=== PATIENT | female | born 1975 | race Caucasian/White ===

== ENCOUNTER 2017-06-10 22:29 | Inpatient (IN) | payer SELFPAY ==
[~2017-06-10] VITALS: Ht 160 cm; Wt 91.7 kg
--- NOTE | 2017-06-10 22:55 | NUR ---
pt ambulatory w/ steady gait, c/o sob w/ diffuse abd pain, N/V s/p recent gastric sleeve sx last saturday while in [place], no diarrhea, lbm last saturday. AOx4, afebrile w/ resp even & unlabored, tachypneic, hypoxic, diffuse abd pain w/ multiple surgical incisions w/ dry bandage, no redness or active drainage noted. pt placed on 2 l/min O2 via NC, pulse-ox w/ cardiac monitoring. Dr. De La Cruz at bedside for further eval.
[2017-06-10] MEDS ORDERED: ONDANSETRON HCL/PF 4 MG/2 ML VIAL IVP ONE (23:00)
[2017-06-10] MEDS ORDERED: IV NS 0.9% 500 ML BAG IV ONE (23:00)
[2017-06-10] MEDS ORDERED: MORPHINE SULFATE INJ 2 MG/ML DISP.SYRIN IV ONE (23:00)
--- NOTE | 2017-06-10 23:10 | NUR ---
JOSE started, patent & intact w/ site benign. furniture repair technician at bedside for blood draw.
[2017-06-10 23:20] LABS: EOSINOPHILS % (AUTO) 0.2 % (0.0-6.0); HEMATOCRIT 40 % (33-45); HEMOGLOBIN 12.8 g/dL (11.5-14.8); LYMPHOCYTES # (AUTO) 0.4 /CMM (0.8-4.8); LYMPHOCYTES % (AUTO) 2.2 % (20.0-44.0); MEAN CORPUSCULAR HEMOGLOBIN 22 PG (26.0-33.0); MEAN CORPUSCULAR HGB CONC 32 g/dl (31.0-36.0); MEAN CORPUSCULAR VOLUME 68 fL (82-100); MONOCYTES # (AUTO) 0.5 /CMM (0.1-1.30); MONOCYTES % (AUTO) 3.3 % (2.0-12.0); NEUTROPHILS # (AUTO) 15.2 /CMM (1.8-8.9); NEUTROPHILS % (AUTO) 94.3 % (43.0-81.0); PLATELET COUNT (AUTO) 251 /CMM (150-450); RDW COEFFICIENT OF VARIATION 19.8 (11.5-15.0); RED BLOOD CELL COUNT(AUTO) 5.94 MIL/uL (4.0-5.2); WHITE BLOOD COUNT (AUTO) 16.2 K/uL (4.3-11.0)
[2017-06-10] MEDS ORDERED: ONDANSETRON HCL/PF 4 MG/2 ML VIAL ONE (23:20)
[2017-06-10] MEDS ORDERED: MORPHINE SULFATE INJ 4 MG/ML DISP.SYRIN ONE (23:21)
[2017-06-10 23:31] LABS: CALCIUM, SERUM 8.6 mg/dL (8.5-10.1); CARBON DIOXIDE 28 mmol/L (21-32); CHLORIDE 104 mmol/L (98-107); CREATININE 1.5 mg/dL (0.6-1.3); GLUCOSE 124 mg/dL (74-106); POTASSIUM 3.5 mmol/L (3.5-5.1); SODIUM SERUM 140 mmol/L (136-145); UREA NITROGEN, BLOOD 21 mg/dL (7-18)
[2017-06-10 23:35] LABS: INR 1.23 (0.87-1.13); PROTHROMBIN TIME 12.8 SECS (9.5-12.7)
[2017-06-10 23:37] LABS: ALANINE AMINOTRANSFERASE 16 U/L (12-78); ALBUMIN 2.8 g/dL (3.4-5.0); ALKALINE PHOSPHATASE 61 U/L (46-116); ASPARTATE AMINOTRANSFERASE 11 U/L (15-37); BILIRUBIN,DIRECT 0.6 mg/dL (0.0-0.2); BILIRUBIN,TOTAL 1.6 mg/dL (0.2-1.0); LIPASE 110 U/L (73-393); TOTAL PROTEIN, SERUM 7.2 g/dL (6.4-8.2)
--- NOTE | 2017-06-10 23:51 | NUR ---
pt report unable urinate at this time. advised pt to provide urine sample laney. pt denies being , states she has an IUD and will sign waiver for testing.
[2017-06-11] VITALS (16 sets, daily range): BP systolic 84–131; BP diastolic 55–92
--- NOTE | 2017-06-11 00:04 | NUR ---
SENT TO CT.
[2017-06-11] MEDS ORDERED: CT SWABBABLE VALVE TRANS SET 1 EA INFUS.SET MC ONE (00:06)
[2017-06-11] MEDS ORDERED: IOHEXOL-350 100 ML VIAL IV ONE (00:06)
[2017-06-11] MEDS ORDERED: IV NS 0.9% 250 ML IV ONE (00:06)
--- NOTE | 2017-06-11 00:26 | NUR ---
pt back fr CT w/ resp even & unlabored, nad noted. On continuous O2, pulse-ox w/ cardiac monitoring.
--- NOTE | 2017-06-11 00:40 | NUR ---
PT AMBULATORY W/ STEADY GAIT TO RESTROOM. URINE OBTAINED & SENT TO LAB.
[2017-06-11] MEDS ORDERED: IV NS 0.9% 1,000 ML BAG IV ONE ×2 (01:00→02:30)
--- NOTE | 2017-06-11 01:52 | NUR ---
pt sitting up in bed w/ resp even & unlabored, on continues O2 w/ report now having lt shoulder pain, tolerable at this time. On continuous monitoring w/ family at bedside. Awaiting CT results.
[2017-06-11 01:55] LABS: APPEARANCE,URINE SL CLOUDY (CLEAR); BILIRUBIN,URINE NEGATIVE (NEGATIVE); BLOOD, URINE TRACE-INTA Ery/uL (NEGATIVE); COLOR,URINE YELLOW (YELLOW); KETONES,URINE NEGATIVE (NEGATIVE); LEUKOCYTE ESTERASE ,URINE NEGATIVE (NEGATIVE); NITRITE, URINE NEGATIVE (NEGATIVE); PH,URINE 6.5 (5.0-8.0); PROTEIN,URINE 1+ mg/dl (NEGATIVE); UGLUCOSE NEGATIVE (NEGATIVE)
[2017-06-11 01:58] LABS: BACTERIA,URINE None seen /HPF (None Seen); SQUAMOUS EPITHELIAL CELL,UR Few /HPF (None Seen); WBC,URINE 0-2 /HPF (0-3)
[2017-06-11] MEDS ORDERED: LEVOFLOXACIN 500 MG /D5W 100ML 500 MG in PREMIX 1 EA IV SCH (02:30)
[2017-06-11] MEDS ORDERED: ENOXAPARIN SODIUM 40 MG/0.4 ML DISP.SYRIN SQ SCH (02:30)
[2017-06-11] MEDS ORDERED: Z GUARD REMEDY 2 OZ OINT TP PRN (02:30)
[2017-06-11] MEDS ORDERED: ACETAMINOPHEN 325 MG TABLET PO PRN (02:30)
[2017-06-11] MEDS ORDERED: ZOLPIDEM TARTRATE 5 MG TABLET PO PRN (02:30)
[2017-06-11] MEDS ORDERED: MAGNESIUM HYDROXIDE 30 ML UDC PO PRN (02:30)
[2017-06-11] MEDS ORDERED: MAG HYDROX/AL HYDROX/SIMETH 30 ML UDC PO PRN (02:30)
[2017-06-11] MEDS ORDERED: LEVOFLOXACIN 750 MG /D5W 150ML PIGGYBACK IV ONE (02:30)
--- NOTE | 2017-06-11 02:36 | NUR ---
Report given to JACIEL Marie for AGUSTIN.
[2017-06-11] MEDS ORDERED: ENOXAPARIN SODIUM 40 MG/0.4 ML DISP.SYRIN SQ ONE (02:51)
[2017-06-11] MEDS ORDERED: HYDROCODONE/APAP 5/325MG 1 EACH TABLET ONE (02:52)
--- NOTE | 2017-06-11 02:55 | NUR ---
MS RN OPENING NOTES RECEIVED PT FROM Skip AT 0245 VIA [facility], PT A/O X4, PT NO ACUTE DISTRESS NOTED. DAUGHTER AT BEDSIDE, ON 2LPM VIA NC 02 SAT 97% ADMIT TO MS UNIT, BREATHING EVEN AND UNLABORED, PT STATED THAT SHE IS HAVING SOB AT TIMES HEAD OF BED ELEVATED FOR BETTER LUNG EXPANSION AND GOOD CIRCULATION. SAFETY MEASURES IN PLACE, BED LOCKED AND IN LOWEST POSITION, CALL LIGHT IN REACH. WILL CONTINUE TO MONITOR.
[2017-06-11] MEDS ORDERED: ONDANSETRON HCL/PF 4 MG/2 ML VIAL ONE (03:02)
[2017-06-11] MEDS: ONDANSETRON HCL/PF 4 MG/2 ML VIAL IVP PRN ×2 (03:06→08:42)
[2017-06-11] MEDS: HYDROCODONE/APAP 5/325MG 1 EACH TABLET PO PRN (03:06)
--- NOTE | 2017-06-11 06:41 | NUR ---
MS RN CLOSING NOTES PATIENT COMFORTABLY ASLEEP AND EASILY AWAKEN, HEAD OF BED ELEVATED FOR BETTER LUNG EXPANSION, ON 2LPM VIA NC 02 SAT AT 100% IV SITE NO S/S OF INFILTRATED PATENT AND FLUSHED, PATIENT DENIES PAIN AT THIS TIME. RESPIRATIONS EVEN AND UNLABORED, NO S/S OF ACUTE DISTRESS, IN STABLE CONDITION, NO COUGH, NO CONGESTION, SKIN WARM AND DRY TO TOUCH, AFEBRILE, ALL NURSING CARE RENDERED, NEEDS ATTENDED AND ANTICIPATED, KEPT CLEAN AND DRY AND COMFORTABLE, GOOD SKIN CARE PROVIDED. ALL DUE MEDS WAS GIVEN FREQUENT VISUAL CHECK DONE FOR SAFETY SAFE HAZARD FREE ENVIRONMENT PROVIDED. CALL LIGHT WITHIN EASY TO REACH, ON LOW BED AT ALL TIMES TO ENSURE SAFETY, WILL ENDORSE TO THE NEXT SHIFT CONTINUE PLAN OF CARE.
[2017-06-11] MEDS: PANTOPRAZOLE 40 MG TABLET.DR PO SCH (07:30)
[2017-06-11] MEDS: HYDROCODONE/APAP 10/325MG 1 EA TABLET PO PRN (08:43)
--- NOTE | 2017-06-11 09:00 | NUR ---
RN MS NOTES PT RESTING IN BED, COMFORTABLY. PT COMPLAINING OF PAIN IN ABDOMEN AND LOWER BACK. REPOSITIONED PT AND ADMINISTERED PAIN MEDICATION. PT RECEIVING 3L OF O2 THROUGH NC. O2 SAT 92%, WILL CONTINUE TO MONITOR. LEFT CALL LIGHT WITHIN REACH.
[2017-06-11 11:32] LABS: ABG BASE EXCESS -4.7 mmol/L; ABG PCO2 33.4 mmHg (35.0-45.0); ABG PH 7.383 (7.350-7.450); ABG PO2 69.6 mmHg (75.0-100.0); AaDO2 119.5 mmHg; COHb 0.6 % (0.5-1.5); MetHb 0.5 % (0.0-1.5); SITE, ABG Right Radial; VENT MODE, BG NASAL CANNULA
--- NOTE | 2017-06-11 12:00 | NUR ---
RN MS NOTES PT IN BED, STATED THAT SHE HAS BEEN HAVING VERY LITTLE URINE OUTPUT SINCE LAST NIGHT, WITH COMPLAINT OF BLADDER DISCOMFORT, DR. DIXON INFORMED, ORDERED MOSES CATHETER PLACEMENT, NOTED AND CARRIED OUT, PT TOLERATED PROCEDURE WELL.
[2017-06-11] MEDS ORDERED: DIATR MEGLU/DIATRIZOATE SODIUM 30 ML BOTTLE (GASTROGRAPHIN) ONE (12:56)
--- NOTE | 2017-06-11 13:31 | NUR ---
RN MS NOTES PT SEEN BY DR. DAWKINS, PLAN OF CARE DISCUSSED WITH PT, VERBALIZED UNDERSTANDING, MD ORDERED CT SCAN OF ABD AND PELVIS WITH CONTRAST AND CBC STAT, CONSENT GIVEN BY PT.
--- NOTE | 2017-06-11 14:15 | NUR ---
PATIENT UNABLE TO TOLERATE LYING DOWN IN SUPINE POSITION. RN AWARE.
[2017-06-11 14:21] LABS: EOSINOPHILS % (AUTO) 0.1 % (0.0-6.0); HEMATOCRIT 44 % (33-45); HEMOGLOBIN 13.7 g/dL (11.5-14.8); LYMPHOCYTES # (AUTO) 0.2 /CMM (0.8-4.8); LYMPHOCYTES % (AUTO) 1.3 % (20.0-44.0); MEAN CORPUSCULAR HEMOGLOBIN 22 PG (26.0-33.0); MEAN CORPUSCULAR HGB CONC 32 g/dl (31.0-36.0); MEAN CORPUSCULAR VOLUME 68 fL (82-100); MONOCYTES # (AUTO) 0.5 /CMM (0.1-1.30); MONOCYTES % (AUTO) 2.8 % (2.0-12.0); NEUTROPHILS # (AUTO) 18.4 /CMM (1.8-8.9); NEUTROPHILS % (AUTO) 95.8 % (43.0-81.0); PLATELET COUNT (AUTO) 256 /CMM (150-450); RDW COEFFICIENT OF VARIATION 19.3 (11.5-15.0); RED BLOOD CELL COUNT(AUTO) 6.38 MIL/uL (4.0-5.2); WHITE BLOOD COUNT (AUTO) 19.2 K/uL (4.3-11.0)
[2017-06-11 15:05] LABS: BAND % (MANUAL) 21 % (0.0-5.0); LYMPHOCYTES % (MANUAL) 2 % (16-48); MONOCYTES % (MANUAL) 9 % (0-11.0); NEUTROPHILS % (MANUAL) 68 (42-76)
--- NOTE | 2017-06-11 15:30 | NUR ---
RN MS NOTES PT UNABLE TO HAVE CT SCAN BECAUSE PT IS UNABLE TO TOLERATE LYING FLAT, MAKING HER HARDER TO BREATHE, DR. DAWKINS INFORMED, PT SEEN BY DR. DC, DR. DIXON AND DR. DAWKINS INFORMED OF MD'S RECOMMENDATIONS, ORDERS RECEIVED TO GET CONSENT FOR EXPLORELAP, PT INFORMED, EXPLAINED PROCEDURE TO PT, VERBALIZED UNDERSTANDING, PT SIGNED CONSENTS, KEPT PT NPO.
--- NOTE | 2017-06-11 15:52 | NUR ---
OR INFORMED, SPOKE WITH DAVID THAT PT SCHEDULED FOR EMERGENCY SURGERY PER DR. APONTE.
[2017-06-11] MEDS ORDERED: HYDROMORPHONE INJ 2 MG/ML DISP.SYRIN ONE (16:45)
[2017-06-11] MEDS ORDERED: MIDAZOLAM HCL 2 MG/2ML VIAL ONE (16:45)
[2017-06-11] MEDS ORDERED: ROCURONIUM BROMIDE 50 MG/5 ML ONE (16:45)
[2017-06-11] MEDS ORDERED: SUCCINYLCHOLINE CHLORIDE 20 MG/ML VIAL ONE (16:45)
--- NOTE | 2017-06-11 16:50 | NUR ---
RN MS NOTES PT IN BED, AWAKE, ALERT AND ORIENTED, DR. DAWKINS AT BEDSIDE, EXPLAINED PLAN OF CARE AND PROCEDURE TO PT, VERBALIZED UNDERSTANDING, PT PICKED UP BY O.R. STAFF VIA BED, LEFT IN STABLE CONDITION.
[2017-06-11] MEDS ORDERED: METRONIDAZOLE 500MG/ NS 100ML 100 ML IV ONE (17:25)
[2017-06-11] MEDS ORDERED: CIPROFLOXACIN IV RTU 400 MG in PREMIX 1 EA IV STA (17:27)
[2017-06-11] MEDS ORDERED: METHYLENE BLUE AMP (1ML) 1 ML AMPUL IJ ONE (18:18)
--- NOTE | 2017-06-11 18:30 | NUR ---
RN MS NOTES REPORT GIVEN TO LILA DRIVER LICENSE REVIEWING OFFICER.
[2017-06-11] MEDS ORDERED: NEOMY SULF/BACITRAC ZN/POLY 15 GM TUBE TP ONE (20:20)
--- NOTE | 2017-06-11 20:40 | NUR ---
RN:ICU: PT RECEIVED FROM OR S/P EXPLORATORY LAP WHICH WAS PERFORMED BY DR DAWKINS. PT REPORTEDLY WAS BECOMING WORSE FOLLOWING A PLASTIC SURGERY PERFORMED IN [place] FIVE DAYS LINK FABRIC MACHINE OPERATOR. PT HAD BEEN EXPERIENCING ABDOMINAL PAIN AND SHORTNESS OF BREATH, WHICH WARRANTED THIS PROCEDURE. PER SURGEON DURING THE SURGERY A LARGE AMOUNT OF AUTUMN FLUID WAS FOUND IN THE ABDOMINAL CAVITY. PT RECEIVED ON VENT POST OP. ABG AND CHEST XRAY ORDERED TO VERIFY ETT PLACEMENT AND ESTABLISH ADEQUATE VENTILATION/OXYGENATION. SURGEON AT THE BEDSIDE FOLLOWING CASE AND WAS ABLE TO VERIFY POST OP ORDERS WITH PRIMARY NURSE AND CHARGE NURSE. MD AWARE OF LOW URINE OUTPUT AND ANTICIPATES THAT IT WILL IMPROVE AFTER RECEIVING HIGH VOLUMES OF LR. NEW IV STARTED ON RIGHT HAND BY RECOVERY NURSE DESTINY. DESTINY STARTED PROPOFOL FOR SEDATION DURING RECOVERY AT 5MCG/KG/MIN. RECOVERY NURSE DID NOT SCAN MEDICATION WHEN GTT WAS STARTED, MED WAS SCANNED LATE A RESULT. BILATERAL SOFT WRIST RESTRAINTS IN PLACE FOR PATIENT SAFETY FOLLOWING PROCEDURE. PT AFEBRILE AND NO SOB NOTED. STAT LABS SENT OUT. WILL F/U SHORTLY. PT HAS TWO ABDOMINAL STEVE DRAINS WITH MODERATE SEROSANGUINEOUS FLUID DRAINING, ALONG WITH MULTIPLE ABDOMINAL INCISIONS WITH CLEAN DRY DRESSINGS. ABDOMINAL BINDER IN PLACE POST OP. WILL CONTINUE TO MONITOR CLOSELY.
[2017-06-11] MEDS ORDERED: PROPOFOL 100 ML IV ONE (20:48)
[2017-06-11 21:23] LABS: ABG BASE EXCESS -9.2 mmol/L; ABG OXYGEN SATURATION 95.2 % (92.0-98.5); ABG PCO2 44.5 mmHg (35.0-45.0); ABG PH 7.228 (7.350-7.450); ABG PO2 91.4 mmHg (75.0-100.0); AaDO2 287.5 mmHg; COHb 0.8 % (0.5-1.5); MetHb 1.1 % (0.0-1.5); O2Hb 93.4 % (94.0-97.0); PEEP,BG 5 cm H2O; SITE, ABG Right Brachial; VENT MODE, BG AC 14 500 60% +55; VT, ABG 500 mL
[2017-06-11] MEDS ORDERED: PROMETHAZINE HCL 50 MG/ML AMPUL IM PRN (21:30)
[2017-06-11] MEDS ORDERED: CIPROFLOXACIN IV RTU 400 MG in PREMIX 1 EA IV SCH (21:30)
[2017-06-11] MEDS ORDERED: MEPERIDINE HCL/PF 100 MG/ML DISP.SYRIN IM PRN (21:30)
[2017-06-11] MEDS ORDERED: MEPERIDINE HCL/PF 100 MG/ML DISP.SYRIN IV PRN (21:30)
[2017-06-11 21:35] LABS: HEMATOCRIT 43 % (33-45); HEMOGLOBIN 13.3 g/dL (11.5-14.8); LYMPHOCYTES # (AUTO) 0.2 /CMM (0.8-4.8); LYMPHOCYTES % (AUTO) 0.8 % (20.0-44.0); MEAN CORPUSCULAR HEMOGLOBIN 21 PG (26.0-33.0); MEAN CORPUSCULAR HGB CONC 31 g/dl (31.0-36.0); MEAN CORPUSCULAR VOLUME 69 fL (82-100); MONOCYTES # (AUTO) 0.5 /CMM (0.1-1.30); MONOCYTES % (AUTO) 2.7 % (2.0-12.0); NEUTROPHILS # (AUTO) 19.2 /CMM (1.8-8.9); NEUTROPHILS % (AUTO) 96.5 % (43.0-81.0); PLATELET COUNT (AUTO) 244 /CMM (150-450); RED BLOOD CELL COUNT(AUTO) 6.21 MIL/uL (4.0-5.2); WHITE BLOOD COUNT (AUTO) 19.9 K/uL (4.3-11.0)
[2017-06-11] MEDS: IV LR 1000 ML 1,000 ML IV PRN (21:38)
--- NOTE | 2017-06-11 21:45 | NUR ---
RN:ICU: CALLED RADIOLOGY MULTIPLE TIMES TO OBTAIN RESULTS FROM S/P INTUBATION RESULTS. PER REPORT ETT 10MM ABOVE ALEXUS. ABG RESULTS AND CHEST XRAY RESULTS REPORTED TO DR. DC. NEW ORDERS OBTAINED TO CHANGE VENT SETTINGS AND REPEAT CHEST XRAY AFTER ADVANCING 3MM. RT AWARE AND ORDERS CARRIED OUT. WILL CONTINUE TO MONITOR CLOSELY.
[2017-06-11] MEDS: PROPOFOL 100 ML IV PRN (21:51)
[2017-06-11 21:52] LABS: ALBUMIN 1.7 g/dL (3.4-5.0); BILIRUBIN,TOTAL 1.5 mg/dL (0.2-1.0); CALCIUM, SERUM 7.1 mg/dL (8.5-10.1); CREATININE 1.5 mg/dL (0.6-1.3); MAGNESIUM 1.8 mg/dL (1.8-2.4); POTASSIUM 4.1 mmol/L (3.5-5.1); TOTAL PROTEIN, SERUM 5.5 g/dL (6.4-8.2)
[2017-06-11] MEDS ORDERED: CIPROFLOXACIN IV RTU 200 ML IV ONE (22:04)
[2017-06-11] MEDS ORDERED: MEPERIDINE HCL/PF 50 MG/ML DISP.SYRIN ONE (22:58)
[2017-06-11] MEDS ORDERED: PROMETHAZINE HCL 25 MG/ML AMPUL ONE (22:59)
--- NOTE | 2017-06-11 23:15 | NUR ---
RN:ICU: RIGHT HAND IV DISLODGED, NEW PIV INSERTED ON RIGHT WRIST. DUE TO LARGE AMOUNT OF LR RUNNING ORDERS OBTAINED FOR MIDLINE. MIDLINE INSERTED BY PICC NURSE ON RIGHT UPPER ARM WITH OUT COMPLICATIONS. OLD IV REMOVED. ORDERS OBTAINED TO GIVE A PRN ONCE TIMES DOSE OF MORPHINE IF NEEDED TO MANAGE PAIN INSTEAD OF DEMEROL. MODERATE AMOUNT OF SEROSANGUINEOUS FLUID DRAINING FROM STEVE TUBES X2 R>L. WILL CONTINUE TO MONITOR CLOSELY.
[2017-06-11] MEDS: PROMETHAZINE HCL 50 MG/ML AMPUL IM PRN (23:16)
[2017-06-11] MEDS ORDERED: MORPHINE SULFATE INJ 2 MG/ML DISP.SYRIN IV PRN (23:30)
[2017-06-11 23:34] LABS: BAND % (MANUAL) 68 % (0.0-5.0); METAMYELOCYTES % 1 % (0-0); MONOCYTES % (MANUAL) 1 % (0-11.0); NEUTROPHILS % (MANUAL) 30 (42-76)
[2017-06-11 23:49] LABS: REACTIVE LYMPHOCYTES 0 % (0-0)
[2017-06-11 23:51] LABS: LYMPHOCYTES % (MANUAL) 0 % (16-48)
[2017-06-12] VITALS (37 sets, daily range): BP systolic 83–133; BP diastolic 50–85
[2017-06-12] MEDS ORDERED: METRONIDAZOLE 500MG/ NS 100ML 100 ML IV ONE (00:17)
[2017-06-12] MEDS: PROPOFOL 100 ML IV PRN ×4 (00:17→08:41)
--- NOTE | 2017-06-12 01:11 | NUR ---
RN:ICU: LATEST CHEST XRAY SHOWS ETT 1.2MM ABOVE ALEXUS, PER RT MARIANA ETT IS IN PLACE. PT O2 WNL. PT TURNED Q2H. WILL CONTINUE TO MONITOR CLOSELY.
[2017-06-12] MEDS ORDERED: MEPERIDINE HCL/PF 100 MG/ML DISP.SYRIN IM PRN (01:30)
[2017-06-12] MEDS ORDERED: METRONIDAZOLE 500MG/ NS 100ML 500 MG in PREMIX 1 EA IV SCH (01:30)
[2017-06-12] MEDS ORDERED: LEVOFLOXACIN 500 MG /D5W 100ML 500 MG in PREMIX 1 EA IV SCH (03:00)
[2017-06-12] MEDS: IV LR 1000 ML 1,000 ML IV PRN (03:52)
[2017-06-12 04:45] LABS: HEMATOCRIT 35 % (33-45); HEMOGLOBIN 10.9 g/dL (11.5-14.8); LYMPHOCYTES # (AUTO) 0.6 /CMM (0.8-4.8); LYMPHOCYTES % (AUTO) 4.6 % (20.0-44.0); MEAN CORPUSCULAR HEMOGLOBIN 22 PG (26.0-33.0); MEAN CORPUSCULAR HGB CONC 32 g/dl (31.0-36.0); MEAN CORPUSCULAR VOLUME 68 fL (82-100); MONOCYTES # (AUTO) 0.4 /CMM (0.1-1.30); MONOCYTES % (AUTO) 3.1 % (2.0-12.0); NEUTROPHILS # (AUTO) 12.9 /CMM (1.8-8.9); NEUTROPHILS % (AUTO) 92.3 % (43.0-81.0); PLATELET COUNT (AUTO) 197 /CMM (150-450); RDW COEFFICIENT OF VARIATION 19.8 (11.5-15.0); RED BLOOD CELL COUNT(AUTO) 5.07 MIL/uL (4.0-5.2)
[2017-06-12 05:14] LABS: CALCIUM, SERUM 7.1 mg/dL (8.5-10.1); CREATININE 1.6 mg/dL (0.6-1.3); MAGNESIUM 1.9 mg/dL (1.8-2.4); PHOSPHORUS 1.9 mg/dL (2.5-4.9); POTASSIUM 3.2 mmol/L (3.5-5.1)
[2017-06-12] MEDS ORDERED: IV LR 1000 ML 1,000 ML IV ONE (05:44)
--- NOTE | 2017-06-12 05:47 | NUR ---
RN:ICU: DR DAWKINS CALLED TO CHECK ON PT CONDITION, ALL UPDATES GIVEN INCLUDING AM LABS, CURRENT BP DROPPING TO 80'S AND STEVE DRAINAGE, WELL CHEST XRAY RESULTS. NEW ORDERS RECEIVED TO INCREASE LR X1L AND REPLACE POTASSIUM. MD INFORMED OF U/O AND URINE COLOR. DIPRIVAN DECREASED FROM 40MCG/KG/MIN TO 30MCG/KG/MIN TO ASSIST WITH IMPROVING PT BP. BILAT SOFT WRIST RESTRAINTS ON FOR PT SAFETY. ORDERS CARRIED OUT. ALSO DISCUSSED WITH MD REGARDING D/C OF LEVAQUIN CIPRO WAS ALREADY ORDERED.
[2017-06-12] MEDS ORDERED: POTASSIUM CL. PREMIX PERIPHER. 50 ML ONE (05:59)
[2017-06-12] MEDS ORDERED: IV LR 1000 ML 1,000 ML IV PRN (06:00)
[2017-06-12] MEDS ORDERED: MORPHINE SULFATE INJ 2 MG/ML DISP.SYRIN ONE (06:08)
[2017-06-12 06:22] LABS: BAND % (MANUAL) 26 % (0.0-5.0); LYMPHOCYTES % (MANUAL) 3 % (16-48); MONOCYTES % (MANUAL) 3 % (0-11.0); NEUTROPHILS % (MANUAL) 68 (42-76)
[2017-06-12] MEDS ORDERED: POTASSIUM CL. PREMIX PERIPHER. 50 ML IV SCH (06:30)
--- NOTE | 2017-06-12 07:00 | NUR ---
LINUX DEVELOPER- INITIAL NOTE RECEIVED PT INTUBATED AND SEDATED. ON DIPRIVAN GTT AT 35 MCG/MIN. INTUBATED, 7.0, 25 CM @ THE LIP. BEDSIDE MONITOR REVEALS SINUS RHYTHM. RIGHT NARE NGT CONNECTED TO LOW INTERMITTENT SUCTION. MIDLINE ABDOMINAL INCISION PRESENT WITH TWO STEVE DRAINS ON ABDOMEN (LEFT AND RIGHT). MOSES CATHETER DRAINING TO GRAVITY. KAYCEE MIDLINE RUNNING LR @ 250 MLS/HR. SAFETY MEASURES TAKEN: BED LOCKED AND IN LOW POSITION, SIDE RAILS UP X2 AND BED ALARM ON, WILL CONTINUE TO MONITOR.
[2017-06-12] MEDS: PANTOPRAZOLE 40 MG TABLET.DR PO SCH (07:30)
[2017-06-12] MEDS: ENOXAPARIN SODIUM 40 MG/0.4 ML DISP.SYRIN SQ SCH (08:30)
[2017-06-12 08:46] LABS: ABG BASE EXCESS -1.7 mmol/L; ABG OXYGEN SATURATION 95.5 % (92.0-98.5); ABG PCO2 25.6 mmHg (35.0-45.0); ABG PH 7.512 (7.350-7.450); ABG PO2 74.6 mmHg (75.0-100.0); COHb 0.3 % (0.5-1.5); MetHb 0.9 % (0.0-1.5); O2Hb 94.4 % (94.0-97.0); PEEP,BG 5 cm H2O; SITE, ABG Left Radial; VT, ABG 550 mL
--- NOTE | 2017-06-12 09:00 | NUR ---
COTTON BREEDER- SEDATION VACATION. 899- PT ON DIPRIVAN @ 35 MCG/MIN. DECREASED TO 30 MCG/MIN. PT AWAKE, CALM, COOPERATIVE. ABLE TO FOLLOW SIMPLE COMMANDS. NODS HEAD, OPENS EYES AND SQUEEZES HANDS. 09- PT PLACED ON SIMV MODE BY RT PER DR. DC. 1030- ABGS DONE. RESULTS RELAYED TO DR. DC BY RT. 1045- RECEIVED ORDER FROM DR. DC TO PROCEED WITH EXTUBATION. PT REMAINS CALM, RESTING IN BED. SISTER AT BEDSIDE. 1100- PT EXTUBATED BY RT. PLACED ON 6L NC. WILL CONTINUE TO MONITOR. Addendum: 06/12/17 at 1233 by RICKIE NOWAK RN 919- PT PLACED ON SIMV MODE AND DIPRIVAN WAS TURNED OFF. PT REMAINS CALM, ABLE TO FOLLOW SIMPLE COMMANDS. VITAL SIGNS STABLE.
--- NOTE | 2017-06-12 09:30 | NUR ---
RESIDENTIAL MANAGER- DR. DESTINY FELDMAN AT BEDSIDE. INFORMED MD OF THE FOLLOWIN) DEMEROL IM ORDERED PRN FOR PAIN, 2) TEA-COLORED URINE WITH LOW OUTPUT NOTED. PER MD, D/C DEMEROL IM AND ORDER MORPHINE 2 MG IV Q3H PRN PAIN AND 2) D/C LACTATED RINGERS AND NEW ORDER OF NS @ 150 ML/HR. ORDERS PLACED. WILL CONTINUE TO MONITOR.
[2017-06-12] MEDS: IV NS 0.9% 1,000 ML IV PRN ×2 (09:47→18:10)
[2017-06-12] MEDS: CIPROFLOXACIN IV RTU 400 MG in PREMIX 1 EA IV SCH ×2 (10:22→21:47)
[2017-06-12 10:57] LABS: ABG BASE EXCESS -3.4 mmol/L; ABG OXYGEN SATURATION 96.3 % (92.0-98.5); ABG PCO2 28.1 mmHg (35.0-45.0); ABG PH 7.455 (7.350-7.450); ABG PO2 88.1 mmHg (75.0-100.0); AaDO2 236.8 mmHg; COHb 0.3 % (0.5-1.5); MetHb 0.5 % (0.0-1.5); O2Hb 95.5 % (94.0-97.0); PEEP,BG 5 cm H2O; SITE, ABG Left Brachial; VENT MODE, BG SIMV PS=12; VT, ABG 550 mL
--- NOTE | 2017-06-12 11:15 | NUR ---
RT NOTE LATE ENTRY-AWAKE AND ALERT PATIENT EXTUBATED PER 'S ORDER. PLACED ON 6LPM VIA NASAL CANNULA. TOLERATING WELL. NURSE (RICKIE) AWARE.
[2017-06-12] MEDS: MORPHINE SULFATE INJ 2 MG/ML DISP.SYRIN IV PRN ×3 (11:58→18:10)
[2017-06-12] MEDS: METRONIDAZOLE 500MG/ NS 100ML 500 MG in PREMIX 1 EA IV SCH ×2 (12:00→21:43)
[2017-06-12] MEDS ORDERED: Sodium Phosphate 15 MMOL in IV D5W 250 ML IV ONE (14:00)
--- NOTE | 2017-06-12 16:30 | NUR ---
MEDICAL SAFETY DIRECTOR- COMPLETE BED BATH WAS GIVEN TO PATIENT. PT CONTINUES ON 6L NC AND TOLERATING WELL. WILL CONTINUE TO MONITOR.
[2017-06-12] MEDS: POTASSIUM PHOSPHATE MM 7.5 MMOL in IV D5W 100 ML IV SCH ×2 (17:32→20:17)
--- NOTE | 2017-06-12 18:30 | NUR ---
BRUSH MATERIAL PREPARER- DR. DAWKINS AT BEDSIDE. OBTAINED ORDERS TO REPEAT CHEST X-RAY TOMORROW MORNING AND CHANGE MORPHINE ORDER TO MORPHINE 2 MG IV Q2H. ALL ORDERS PLACED. WILL CONTINUE TO MONITOR.
--- NOTE | 2017-06-12 19:30 | NUR ---
RAND BUTTING MACHINE OPERATOR: RECEIVED PT ALERT AND ORIENTED X 3. ON S/P EXPLO LAP WT SURGICAL DRESSING DRY, CLEAN AND INTACT. ABDOMINAL BINDER IN PLACE. C/O MINIMAL ABDOMINAL DISCOMFORT (10/26). ASSISTED IN REPOSITIONING. STEVE DRAINS ON BOTH ABDOMINAL SIDES INTACT AND PATENT WT MINIMAL AMT. OF SEROSANGUINEOUS DRAINAGE. RT. NGT ON LOW INTERMITTENT SUCTION WT DARK GREENISH SECRETIONS FROM DAY SHIFT. AFEBRILE. SR-ST ON AUTOMOBILE RENTAL CLERK. F/C PATENT AND INTACT DRAINING TEA COLORED URINE BY GRAVITY. KAYCEE MIDLINE INFUSING NS AT 150ML/HR AND 1ST BAG OF K-PHOS. WT NO S/S OF INFILTRATION. DR. DAWKINS WT VERBAL ORDERS FOR XR UPPER GI WT GASTRO GRAFFIN AND XR SMALL BOWEL FOLLOW THROUGH IN AM. PT. AWARE. NOTED AND CARRIED OUT. SAFETY PRECAUTION NOTED. WILL CONTINUE TO MONITOR.
[2017-06-12] MEDS: MORPHINE SULFATE INJ 10 MG/ML DISP.SYRIN IV PRN ×2 (20:23→23:25)
[2017-06-12] MEDS: ONDANSETRON HCL/PF 4 MG/2 ML VIAL IV PRN (20:34)
[2017-06-13] VITALS (23 sets, daily range): BP systolic 106–159; BP diastolic 62–98
--- NOTE | 2017-06-13 00:30 | NUR ---
ARCHITECTURAL PROJECT MANAGER: PT ASLEEP WT NO ACUTE DISTRESS. EASILY AROUSED WT VERBAL OR TOUCHED STIMULI. NO EVIDENCE OF DISCOMFORT. VS WITHIN HER BASELINE. ONGOING ASSESSMENT
[2017-06-13] MEDS: IV NS 0.9% 1,000 ML IV PRN ×3 (01:58→21:14)
[2017-06-13] MEDS: MORPHINE SULFATE INJ 10 MG/ML DISP.SYRIN IV PRN ×10 (01:59→23:31)
--- NOTE | 2017-06-13 04:30 | NUR ---
ELECTRICAL SYSTEMS DRAFTER: PT REMAINED ALERT AND AWAKE. VERBALIZED SHE CANNOT GO BACK TO SLEEP. BED BATH OFFERED BUT REFUSED AT THIS TIME. SHE SAID SHE GOT BED BATH DURING DAY SHIFT AND DOES NOT NEED TO GET CLEANED AT THIS TIME. RESPECTED PT's RIGHT TO REFUSE AM CARE.
[2017-06-13 04:32] LABS: HEMATOCRIT 29 % (33-45); HEMOGLOBIN 9.4 g/dL (11.5-14.8); MEAN CORPUSCULAR HEMOGLOBIN 22 PG (26.0-33.0); MEAN CORPUSCULAR HGB CONC 32 g/dl (31.0-36.0); MEAN CORPUSCULAR VOLUME 68 fL (82-100); PLATELET COUNT (AUTO) 245 /CMM (150-450); RDW COEFFICIENT OF VARIATION 19.4 (11.5-15.0); RED BLOOD CELL COUNT(AUTO) 4.27 MIL/uL (4.0-5.2); WHITE BLOOD COUNT (AUTO) 16.8 K/uL (4.3-11.0)
[2017-06-13 04:47] LABS: CALCIUM, SERUM 7.6 mg/dL (8.5-10.1); CREATININE 0.9 mg/dL (0.6-1.3); MAGNESIUM 2.2 mg/dL (1.8-2.4); POTASSIUM 3.9 mmol/L (3.5-5.1)
[2017-06-13] MEDS: METRONIDAZOLE 500MG/ NS 100ML 500 MG in PREMIX 1 EA IV SCH ×3 (05:25→21:55)
[2017-06-13 05:41] LABS: BAND % (MANUAL) 17 % (0.0-5.0); EOSINOPHILS % (MANUAL) 1 % (0-4); LYMPHOCYTES % (MANUAL) 6 % (16-48); METAMYELOCYTES % 4 % (0-0); MONOCYTES % (MANUAL) 1 % (0-11.0); MYELOCYTES % 3 % (0-0); NEUTROPHILS % (MANUAL) 68 (42-76)
--- NOTE | 2017-06-13 06:27 | NUR ---
MOTEL MAID: GIVEN MORPHINE 2MG AND WASTE 8MGWT JACIEL HERBERT WITNESS.
--- NOTE | 2017-06-13 06:40 | NUR ---
PRIZE COORDINATOR: VITAL SIGNS WITHIN NORMAL RANGE. GIVEN MORPHINE Q2H REQUESTED FOR ABDOMINAL PAIN (8/10) UNRELIEVED BY NON-PHARMACOLOGICAL MEASURES WT GOOD EFFECT (3/10). ABDOMINAL SURGICAL DRESSING REMAINED DRY, CLEAN AND INTACT. ALL NEEDS MET. WILL ENDORSE TO DAY SHIFT FOR CONTINUITY OF CARE.
--- NOTE | 2017-06-13 07:30 | NUR ---
ROOFER GYPSUM RECEIVED PATIENT AWAKE ALERT ORIENTED X 4 WEAK IN APPEARANCE AND IN PAIN SHE WANTED HER PAIN MEDICATION TO BE GIVEN ON TIME, ANXIOUS BECAUSE OF WHAT HAPPENING TO HER EXPLAINED HER MEDICAL STATUS THAT SHE NEEDED TO HAVE UPPER GI SERIES PROCEDURE TO CHECK HER ABDOMEN AND HER INTESTINES TO SEE ANY LEAK BUT SHE DECLINED BECAUSE OF HER PREVIOUS ABDOMINAL SURGICAL PROCEDURE (GASTRIC SLEEVE) ANTIBIOTIC GIVEN MONITORED CLOSELY
[2017-06-13] MEDS: ONDANSETRON HCL/PF 4 MG/2 ML VIAL IV PRN ×3 (07:53→20:57)
[2017-06-13] MEDS: PANTOPRAZOLE 40 MG VIAL IV SCH (08:44)
[2017-06-13] MEDS: CIPROFLOXACIN IV RTU 400 MG in PREMIX 1 EA IV SCH ×2 (08:45→21:09)
[2017-06-13] MEDS: ENOXAPARIN SODIUM 40 MG/0.4 ML DISP.SYRIN SQ SCH (08:48)
--- NOTE | 2017-06-13 09:00 | NUR ---
REFINERY OPERATOR LIGHT ENDS RECOVERY SPOKE WITH DR. DAWKINS REGARDING PATIENT'S DECLINE IN DOING UPPER GI SERIES EXAM
--- NOTE | 2017-06-13 11:00 | NUR ---
SPINNING MACHINE OPERATOR PATIENT SPOKE WITH THE RADIOLOGIST AND PERINATOLOGY PHYSICIAN REGARDING THE PROCEDURE SHE CAN TAKE THE DYE REQUIRED FOR HER TO TAKE DUE TO HER RECENT GASTRIC SLEEVE PROCEDURE
--- NOTE | 2017-06-13 18:43 | NUR ---
POWER ELECTRONICS RESEARCH ENGINEER SEEN AND EXAMINED BY DR. DAWKINS WITH NEW ORDER MADE AND CARRIED OUT STAPLE SITE CLEANED AND DRESSING CHANGED PATIENT STILL HAS PAIN MOST OF THE TIME, MORPHINE GIVEN ORDERED REPORT GIVEN BY Olivia GREENE RN ENDORSED Addendum: 06/13/17 at 1846 by ZOILA LYON RN PATIENT AGREED TO DO THE PROCEDURE, ADVICE NURSE TO FOLLOW UP WITH RADIOLOGY DEPARTMENT
--- NOTE | 2017-06-13 19:00 | NUR ---
FINANCIAL DIRECTOR OPENING NOTES RECEIVE PT IN BED, PT A/O X4, PT NO ACUTE DISTRESS NOTED. ON 6LPM VIA NC 02 SAT 97% BREATHING EVEN AND UNLABORED, HEAD OF BED ELEVATED FOR BETTER LUNG EXPANSION AND GOOD CIRCULATION. SAFETY MEASURES IN PLACE, BED LOCKED AND IN LOWEST POSITION, CALL LIGHT IN REACH. WILL CONTINUE TO MONITOR.
--- NOTE | 2017-06-13 19:00 | NUR ---
RN NOTES: RECEIVED PATIENT FROM ICU. REPORT GIVEN BY ZOILA. PATIENT ALERT ORIENTED X4. NONLABORED BREATHING NOTED ON 6 L NASAL CANNULA. PATIENT HAS A NGTUBE ON RIGHT NARE. NO SIGNS OF DISTRESS NOTED. MIDLINE PATENT AND INTACT. VS WNL. FAMILY AT BEDSIDE. WILL ENDORSE TO NEXT SHIFT.
[2017-06-14] VITALS (7 sets, daily range): BP systolic 130–148; BP diastolic 78–92
[2017-06-14] MEDS: MORPHINE SULFATE INJ 10 MG/ML DISP.SYRIN IV PRN ×7 (01:33→22:48)
[2017-06-14] MEDS: ONDANSETRON HCL/PF 4 MG/2 ML VIAL IV PRN ×3 (04:39→20:11)
[2017-06-14] MEDS ORDERED: METRONIDAZOLE 500MG/ NS 100ML 100 ML IV ONE (05:03)
[2017-06-14] MEDS: METRONIDAZOLE 500MG/ NS 100ML 500 MG in PREMIX 1 EA IV SCH ×2 (05:09→13:58)
--- NOTE | 2017-06-14 06:24 | NUR ---
HOME SALES CONSULTANT CLOSING NOTES ASLEEP AND EASILY AWAKEN, HEAD OF BED ELEVATED FOR BETTER LUNG EXPANSION AND GOOD CIRCULATION, IN STABLE CONDITION, NOT IN RESPIRATORY DISTRESS, GOOD SKIN CARE PROVIDED., NOTED WITH TWO ABDOMINAL STEVE DRAINS WITH MODERATE SEROSANGUINEOUS FLUID DRAINING, ON ATB WITH NO A/R NOTED. ON 6LPM VIA NC 02 SAT AT 100% RESPIRATIONS EVEN AND UNLABORED, AFEBRILE, NEEDS ATTENDED AND ANTICIPATED, KEPT CLEAN AND DRY AND COMFORTABLE, ALL DUE MEDS WAS GIVEN FREQUENT VISUAL CHECK DONE FOR SAFETY SAFE HAZARD FREE ENVIRONMENT PROVIDED. ASSISTED REPOSITIONED EVERY 2 HOURS FOR COMFORT AND SKIN MGT. ABDOMINAL BINDER IN PLACE. MULTIPLE ABDOMINAL INCISIONS WITH CLEAN DRY DRESSINGS. CALL LIGHT WITHIN EASY TO REACH, ON LOW BED AT ALL TIMES TO ENSURE SAFETY, WILL ENDORSE TO THE NEXT SHIFT CONTINUE PLAN OF CARE. F/C CARE DRAINING YELLOW VIA GRAVITY WITH SEDIMENTS NO HEMATURIA NO CLOUDINESS NOTED. GOOD F/C CARE PROVIDED. Addendum: 06/14/17 at 0625 by MURPHY HUTCHINS RN CORRECTION: WITH NO SEDIMENTS
[2017-06-14 06:41] LABS: EOSINOPHILS # (AUTO) 0.6 /CMM (0.0-0.7); HEMATOCRIT 30 % (33-45); HEMOGLOBIN 9.8 g/dL (11.5-14.8); LYMPHOCYTES # (AUTO) 0.7 /CMM (0.8-4.8); LYMPHOCYTES % (AUTO) 4.5 % (20.0-44.0); MEAN CORPUSCULAR HEMOGLOBIN 22 PG (26.0-33.0); MEAN CORPUSCULAR HGB CONC 33 g/dl (31.0-36.0); MEAN CORPUSCULAR VOLUME 68 fL (82-100); MONOCYTES # (AUTO) 1.4 /CMM (0.1-1.30); MONOCYTES % (AUTO) 9.6 % (2.0-12.0); NEUTROPHILS # (AUTO) 12.4 /CMM (1.8-8.9); NEUTROPHILS % (AUTO) 81.9 % (43.0-81.0); PLATELET COUNT (AUTO) 290 /CMM (150-450); RDW COEFFICIENT OF VARIATION 19.3 (11.5-15.0); RED BLOOD CELL COUNT(AUTO) 4.43 MIL/uL (4.0-5.2); WHITE BLOOD COUNT (AUTO) 15.2 K/uL (4.3-11.0)
[2017-06-14 06:46] LABS: CALCIUM, SERUM 7.6 mg/dL (8.5-10.1); CREATININE 0.6 mg/dL (0.6-1.3); MAGNESIUM 1.8 mg/dL (1.8-2.4); PHOSPHORUS 2.6 mg/dL (2.5-4.9); POTASSIUM 3.6 mmol/L (3.5-5.1)
--- NOTE | 2017-06-14 07:30 | NUR ---
JUNCTION MAKER NOTES ASLEEP BUT EASILY AROUSABLE, HEAD OF BED ELEVATED, NO S/SX OF RESPIRATORY DISTRESS, NOTED WITH TWO ABDOMINAL STEVE DRAINS WITH MODERATE SEROSANGUINEOUS FLUID DRAINING. ON 6LPM VIA NC 02 SAT AT 100%, ON NGT WITH INTERMITTENT SUCTIONING, NEEDS ATTENDED AND ANTICIPATED. ABDOMINAL BINDER IN PLACE. ABDOMINAL DRESSINGS C/D/I, F/C PATENT AND DRAINING WITH CLEAR YELLOW URINE, SAFETY MEASURES IN PLACED, CALL LIGHT WITHIN REACH, WILL CONTINUE TO MONITOR.
[2017-06-14] MEDS: PANTOPRAZOLE 40 MG VIAL IV SCH (08:44)
[2017-06-14] MEDS: ENOXAPARIN SODIUM 40 MG/0.4 ML DISP.SYRIN SQ SCH (08:52)
[2017-06-14] MEDS ORDERED: DIATR MEGLU/DIATRIZOATE SODIUM 120 ML BOTTLE (GASTROGRAPHIN) ONE (09:24)
--- NOTE | 2017-06-14 09:30 | NUR ---
RN MS NOTES PATIENT BROUGHT TO RADIOLOGY FOR GASTROGRAFFIN XRAY.
[2017-06-14 09:47] LABS: BAND % (MANUAL) 5 % (0.0-5.0); EOSINOPHILS % (MANUAL) 2 % (0-4); LYMPHOCYTES % (MANUAL) 1 % (16-48); MONOCYTES % (MANUAL) 11 % (0-11.0); NEUTROPHILS % (MANUAL) 81 (42-76)
[2017-06-14] MEDS: CIPROFLOXACIN IV RTU 400 MG in PREMIX 1 EA IV SCH (12:27)
[2017-06-14] MEDS ORDERED: LORAZEPAM INJ 2 MG/ML VIAL IV PRN (13:00)
[2017-06-14] MEDS: PROMETHAZINE HCL 50 MG/ML AMPUL IM PRN (13:57)
--- NOTE | 2017-06-14 14:50 | NUR ---
RN MS NOTES RELAYED RADIOLOGY RESULTS TO DR. DAWKINS AND RECEIVED NEW ORDERS TO REMOVE NGT AND START PATIENT ON CLEAR LIQUID DIET. ORDER NOTED AND CARRIED OUT.
--- NOTE | 2017-06-14 16:10 | NUR ---
RN MS NOTES PATIENT NOTED WHEEZING, SLIGHTLY LABORED, SPO2 95% ON 6LPM VIA NC, RESPIRATION 24, DR. ESPARZA MADE AWARE AND RECEIVED ORDER FOR BREATHING TX, ORDER NOTED AND CARRIED OUT.
[2017-06-14] MEDS: ALBUTEROL FS 2.5 MG/0.5 ML VIAL.NEB NEB PRN ×2 (17:07→22:06)
[2017-06-14] MEDS: IPRATROPIUM NEB FS 0.5 MG/2.5 ML AMPUL.NEB NEB PRN ×2 (17:08→22:06)
--- NOTE | 2017-06-14 17:30 | NUR ---
RN MS NOTES PATIENT RECEIVED BREATHING TX, AND TOLERATED WELL, WHEEZING HAS DECREASED, NO SOB NOTED, SPO2 95% ON 6LPM VIA NC. CXR RESULT RELAYED TO DR. ESPARZA WITH NO NEW ORDER AT THIS TIME, PATIENT WAS SEEN AND EXAMINED BY DR. DAWKINS, PER MD DO NOT TOUCH THE ABDOMINAL DRESSING, STEVE DRAIN INTACT AND DRAINING, PER MD HE WILL SPEAK WITH DR. ESPARZA RE: PATIENT'S PLAN OF CARE, PER MD, HE'S PLANNING TO REMOVE STEVE DRAIN TOMORROW. PATIENT WAS ALSO SEEN BY DR. PEREIRA (ID) AND RECEIVED NEW ORDERS, ORDERS NOTED AND CARRIED OUT. PATIENT AWARE AND VERBALIZED UNDERSTANDING. ALL NEEDS ATTENDED AND MET, F/C PATENT AND DRAINING, SAFETY MEASURES IN PLACED, CALL LIGHT WITHIN REACH, ENDORSED TO MULESER FOR AGUSTIN.
[2017-06-14] MEDS ORDERED: FEE PK DOSING 1 MIN EA MC ONE (19:20)
--- NOTE | 2017-06-14 19:30 | NUR ---
MS RN OPENING NOTES: PATIENT IN BED, AOX4, ON O2 AT 6 LPM VIA NC, BREATHING EVEN IN EXPANSION, NO SHORTNESS OF BREATH, BUT WITH WHEEZING UPON AUSCULTATION. STATES HAVING ABDOMINAL PAIN SCALED AT 9/10 OVER BOTH ABDOMINAL AREA. ABDL BINDER APPLIED ON ABDOMEN, PER AM SHIFT REPORT, DR DAWKINS INSTRUCTED RN TO JUST KEEP DRESSING INTACT, NO DRESSING CHANGE FOR NOW. MOSES CATHETER IN PLACE DRAINING DARK YELLOW URINE. PATIENT HAS STEVE DRAIN AT R SIDE OF ABDOMEN, WITH SEROSANGUINEOUS DRAINAGE, DRAINED 50 ML AT THIS TIME, AND SENT SPECIMEN FOR C &S. STEVE DRAIN AT LEFT SIDE OF ABDOMEN WITH SEROSANGUINEOUS DRAINAGE, DRAINED 20 ML AT HTIS TIME AND SENT TO LAB FOR C&S. KAYCEE MIDLINE INTACT AND PATENT TO FLUSH. PROVIDED FOR COMFORT AND SAFETY. WILL CONT TO MONITOR.
--- NOTE | 2017-06-14 20:18 | NUR ---
RN NOTES: PT COMPLAINED OF 10/10 PAIN OVER ABDOMEN, WELL NAUSEA, WITHOUT VOMITING. ADMINISTERED MORPHINE 2 MG IV AND ZOFRAN 8 MG IV PRN. WILL CONT TO MONITOR.
[2017-06-14] MEDS: oxyCODONE HCL SR 10MG TAB.SR.12H PO SCH (21:00)
[2017-06-14] MEDS: VANCOMYCIN 1 GM in IV D5W 250 ML IV SCH (21:32)
[2017-06-14] MEDS: MEROPENEM 1 G in IV NS 0.9% 100 ML IV SCH (21:32)
--- NOTE | 2017-06-14 22:00 | NUR ---
RN NOTES: PATIENT NOTED TO BE WHEEZING. HELD IV FLUID AT THIS TIME, AND THEN EDUCATED PATIENT ON USE OF INCENTIVE SPIROMETRY, HOWEVER, PATIENT IS IN PAIN, CRYING, AND NOT WILLING TO DO IT AT THIS TIME. RAISED HOB. ON O2 AT 6 LPM VIA NC, O2 SAT AT 97%- 98%. BREATHING TREATMENT REQUESTED FROM RT.
[2017-06-15] MEDS: MORPHINE SULFATE INJ 10 MG/ML DISP.SYRIN IV PRN ×2 (00:52→05:52)
[2017-06-15 01:00] VITALS: BP 130/82
[2017-06-15] MEDS: ONDANSETRON HCL/PF 4 MG/2 ML VIAL IV PRN ×3 (02:57→19:32)
[2017-06-15] MEDS: HYDROCODONE/APAP 10/325MG 1 EA TABLET PO PRN (02:57)
--- NOTE | 2017-06-15 02:57 | NUR ---
RN NOTES: PT COMPLAINED OF 8/10 PAIN OVER ABDOMEN, STATED THAT SHE IS READY TO TRY PO KELLIE MEDICATION. GAVE NORCO 10-325 MG PO. POSITIONED PATIENT FOR SAFETY. WILL CONT TO MONITOR.
[2017-06-15] MEDS: IV NS 0.9% 1,000 ML IV PRN (04:03)
--- NOTE | 2017-06-15 04:45 | NUR ---
RN NOTES: PATIENT'S WHEEZING HAS DECREASED SIGNIFICANTLY, PATIENT ALSO REPORTS TO BE ABLE TO BREATHE BETTER. TRIED TO DECREASE O2 TO 4 LPM VIA NC, HOWEVER, O2 SAT GOES DOWN TO 93%. PLACED PATIENT ON 5 LPM VIA NC. PATIENT TOLERATING WELL AT 95-96%. HOB MAINTAINED ELEVATED.
[2017-06-15] MEDS: MEROPENEM 1 G in IV NS 0.9% 100 ML IV SCH ×3 (04:49→21:10)
--- NOTE | 2017-06-15 05:53 | NUR ---
PRN MORPHINE: PT CRYING, COMPLAINING OF UNBEARABLE ABDOMINAL PAIN 03/28, REQUESTING FOR PAIN MEDICATION, PRN MORPHINE 2MG IVP ADMINISTERED TO THE PT AT THIS TIME, WILL CONTINUE TO MONITOR AND REASSESS
--- NOTE | 2017-06-15 07:02 | NUR ---
MS RN CLOSING NOTES: PATIENT IN BED, AOX4, ON O2 AT 5 LPM VIA NC, STILL NOTED TO HAVE WHEEZING UPON AUSCULTATION, NO SOB, AND PATIENT REPORTS HAVING MORE EASE WITH BREATHING. KAYCEE MIDLINE INTACT AND INFUSING WELL WITH NS RUNNING AT 75 ML/HR. ABDOMEN WITH INTACT ABDOMINAL DRESSING. STEVE DRAINS AT R AND L SIDE OF ABDOMEN DRAINING SEROSANGUINEOUS DRAINAGE, MAINTAINED NEGATIVE PRESSURE TO SUCTION. MOSES CATHETER IN PLACE, DRAINING DARK YELLOW URINE. DUE MEDS GIVEN. PROVIDED FOR COMFORT AND SAFETY. BED IN LOWEST AND LOCKED POSITION, SIDERAILS UP X2. WILL ENDORSE TO AM RN FOR AGUSTIN.
--- NOTE | 2017-06-15 07:10 | NUR ---
RN NOTES INITIAL: PATIENT RESTING IN BED. NONLABORED BREATHING NOTED ON 5 L NASAL CANNULA. PATIENT DENIES PAIN AT THE MOMENT. MIDLINE AND IV SITE PATENT AND INTACT. BED IN LOWEST LOCKED POSITION. CALL LIGHT WITHIN REACH
[2017-06-15 07:54] LABS: EOSINOPHILS # (AUTO) 0.4 /CMM (0.0-0.7); HEMATOCRIT 32 % (33-45); HEMOGLOBIN 10.4 g/dL (11.5-14.8); LYMPHOCYTES # (AUTO) 0.8 /CMM (0.8-4.8); LYMPHOCYTES % (AUTO) 5.5 % (20.0-44.0); MEAN CORPUSCULAR HEMOGLOBIN 22 PG (26.0-33.0); MEAN CORPUSCULAR HGB CONC 33 g/dl (31.0-36.0); MEAN CORPUSCULAR VOLUME 67 fL (82-100); MONOCYTES % (AUTO) 13.6 % (2.0-12.0); NEUTROPHILS # (AUTO) 11.4 /CMM (1.8-8.9); NEUTROPHILS % (AUTO) 77.9 % (43.0-81.0); PLATELET COUNT (AUTO) 323 /CMM (150-450); RDW COEFFICIENT OF VARIATION 18.9 (11.5-15.0); RED BLOOD CELL COUNT(AUTO) 4.73 MIL/uL (4.0-5.2); WHITE BLOOD COUNT (AUTO) 14.6 K/uL (4.3-11.0)
[2017-06-15 08:00] VITALS: BP 126/84
[2017-06-15 08:24] LABS: CALCIUM, SERUM 7.7 mg/dL (8.5-10.1); CREATININE 0.7 mg/dL (0.6-1.3); MAGNESIUM 1.7 mg/dL (1.8-2.4); PHOSPHORUS 3.1 mg/dL (2.5-4.9); POTASSIUM 3.2 mmol/L (3.5-5.1)
[2017-06-15] MEDS: VANCOMYCIN 1 GM in IV D5W 250 ML IV SCH ×2 (08:37→21:49)
[2017-06-15] MEDS: oxyCODONE HCL SR 10MG TAB.SR.12H PO SCH (10:02)
[2017-06-15 10:13] LABS: BAND % (MANUAL) 4 % (0.0-5.0); LYMPHOCYTES % (MANUAL) 9 % (16-48); MONOCYTES % (MANUAL) 9 % (0-11.0); MYELOCYTES % 1 % (0-0); NEUTROPHILS % (MANUAL) 77 (42-76)
[2017-06-15] MEDS: PANTOPRAZOLE 40 MG VIAL IV SCH (10:15)
[2017-06-15] MEDS: ENOXAPARIN SODIUM 40 MG/0.4 ML DISP.SYRIN SQ SCH (10:29)
--- NOTE | 2017-06-15 10:33 | NUR ---
rn notes: PATIENT REFUSED TO RECEIVE LOVENOX INJECTION EARLIER. BENEFITS AND RISKS EXPLAINED. LOVENOX ADMINISTERED NOW ON RIGHT ARM
[2017-06-15] MEDS ORDERED: NEOMY SULF/BACITRAC ZN/POLY 15 GM TUBE TP STA (10:56)
[2017-06-15] MEDS: POTASSIUM CL. PREMIX PERIPHER. 50 ML IV SCH ×8 (11:09→17:30)
[2017-06-15] MEDS: Magnesium 1GM/D5W 100ML PREMIX 100 ML IV SCH ×6 (11:24→19:44)
--- NOTE | 2017-06-15 11:30 | NUR ---
RN NOTES: DR DAWKINS CAME AND ASSESSED PATIENT, AWARE OF RECENT LABS. ORDERED IV FLUIDS WITH VITAMINS FOR PATIENT. HE ORDERED TO CONSUME ICE CREAM AND ADVANCE DIET. PATIENT REFUSING. DR ORDERED ATIVAN 2 MG PRN [id number]. PATIENT REFUSING WELL. DR ORDERED TO CHANGE THE OXYCONTIN ORDER TO 20 MG BID.
[2017-06-15] MEDS ORDERED: LORAZEPAM INJ 2 MG/ML VIAL IV PRN (12:00)
[2017-06-15] MEDS ORDERED: IV NS 0.9% 1,000 ML IV PRN (13:00)
[2017-06-15 16:00] VITALS: BP 146/90
[2017-06-15] MEDS ORDERED: MVI ADULT 10ML VIAL = 1AMP 10 ML in IV NS 0.9% 1,000 ML IV ONE ×4 (18:00)
--- NOTE | 2017-06-15 18:04 | NUR ---
RN NOTES: PATIENT RECEIVED 4 BAGS OF 50 ML POTASSIUM PER PHARMACY DOSING. REFER TO EMAR
--- NOTE | 2017-06-15 19:00 | NUR ---
RN NOTES CLOSING: PATIENT RESTING IN BED. NONLABORED BREATHING NOTED ON 5 L NASAL CANNULA. NO SIGNS OF DISTRESS. DURING SHIFT, PATIENT REFUSED TO AMBULATE TO CHAIR. DR ESPARZA CAME AND ASSESSED PATIENT. SHE ORDERED IF PATIENT CAN AMBULATE TO CHAIR. PATIENT REFUSED DUE TO BEING UNCOMFORTABLE. PATIENT OFFERED PAIN MEDICATIONS. PATIENT REFUSED. PATIENT WAS OFFERED HEAT PACKS. SHE STATED THAT THEY SEEMED TO HELP A LITTLE BIT. DURING DAY, PATIENT INITIALLY REFUSED HAVING POTASSIUM AND MAGNESIUM REPLACEMENT AT SAME TIME. MEDICATIONS ADMINISTERED LATE. PHARMACY NOTIFIED. DRAIN OUTPUT ON RIGHT SIDE 50 ML. DRAIN OUTPUT ON LEFT SIDE 25 ML. PATIENT AFEBRILE THROUGHOUT SHIFT. ENCOURAGED TO TURN AND REPOSITION. PATIENT KEPT CLEAN AND DRY. BED IN LOWEST LOCKED POSITION. CALL LIGHT WITHIN REACH. WILL ENDORSE TO NEXT SHIFT
--- NOTE | 2017-06-15 19:30 | NUR ---
MS RN OPENING NOTES: PATIENT IN BED, AOX4, ON O2 AT 5 LPM VIA NC, BREATHING EVEN AND UNLABORED, NO SOB. NOTED SLIGHT EXPIRATORY WHEEZING AT UPPER AIRWAY. COMPLAINS OF 9/10 PAIN OVER ABDOMINAL INCISIONS, STATES THAT "IT FEELS LIKE BEING STABBED WITH KNIVES", AND THAT SHE FEELS NAUSEOUS. KAYCEE MIDLINE INTACT AND INFUSING WELL WITH NS RUNNING AT 75 ML/HR. STEVE DRAINS AT R AND LEFT SIDE OF ABDOMEN, DRAINING MINIMAL AMOUT OF SEROSANGUINEOUS FLUIDS, MAINTAINED NEGATIVE PRESSURE FOR SUCTION. ABDOMINAL BINDER INTACT OVER ABDOMEN, PLACED MEPILEX UNDERNEATH BREASTFOLDS. MOSES CATHETER IN PLACE DRAINING DARK YELLOW URINE. PROVIDED FOR COMFORT AND SAFETY. BED IN LOWEST AND LOCKED POSITION, SIDERAILS UP X2. SISTER AT BEDSIDE. WILL CONT TO MONITOR.
--- NOTE | 2017-06-15 19:45 | NUR ---
RN NOTES: ADMINISTERED ZOFRAN 8 MG IV FOR NAUSEA. WILL CONT TO MONITOR.
[2017-06-15 20:00] VITALS: BP 142/89
--- NOTE | 2017-06-15 20:00 | NUR ---
RN NOTES: MAGNESIUM 1 GM IV X2 BAGS ORDERED, NON ADMINISTERED 1 ENTRY IN EMAR, IT IS A DUPLICATE.
[2017-06-15] MEDS: oxyCODONE HCL SR 20MG TAB.SR.12H PO SCH (20:43)
[2017-06-15] MEDS: ALBUTEROL FS 2.5 MG/0.5 ML VIAL.NEB NEB PRN (22:43)
[2017-06-15] MEDS: IPRATROPIUM NEB FS 0.5 MG/2.5 ML AMPUL.NEB NEB PRN (22:43)
[2017-06-15] MEDS: HYDROCODONE/APAP 5/325MG 1 EACH TABLET PO PRN (23:29)
[2017-06-16] MEDS: HYDROCODONE/APAP 5/325MG 1 EACH TABLET PO PRN (03:49)
[2017-06-16] MEDS: ONDANSETRON HCL/PF 4 MG/2 ML VIAL IV PRN ×3 (03:50→20:47)
--- NOTE | 2017-06-16 03:50 | NUR ---
RN NOTES: PATIENT COMPLAINED OF 7/10 PAIN OVER HER ABDOMEN, SAYING "IT IS STARTING TO HURT AGAIN". ALSO COMPLAINED OF NAUSEA. ADMINISTERED NORCO 5-325 MG PO AND ZOFRAN 8 MG IV. WILL CONT TO MONITOR.
[2017-06-16] MEDS: MEROPENEM 1 G in IV NS 0.9% 100 ML IV SCH ×3 (04:41→20:42)
[2017-06-16 06:55] LABS: EOSINOPHILS # (AUTO) 0.3 /CMM (0.0-0.7); EOSINOPHILS % (AUTO) 1.4 % (0.0-6.0); HEMATOCRIT 32 % (33-45); HEMOGLOBIN 10.6 g/dL (11.5-14.8); LYMPHOCYTES # (AUTO) 0.7 /CMM (0.8-4.8); LYMPHOCYTES % (AUTO) 3.2 % (20.0-44.0); MEAN CORPUSCULAR HEMOGLOBIN 22 PG (26.0-33.0); MEAN CORPUSCULAR HGB CONC 33 g/dl (31.0-36.0); MEAN CORPUSCULAR VOLUME 67 fL (82-100); MONOCYTES # (AUTO) 2.3 /CMM (0.1-1.30); MONOCYTES % (AUTO) 10.6 % (2.0-12.0); NEUTROPHILS # (AUTO) 18.7 /CMM (1.8-8.9); NEUTROPHILS % (AUTO) 84.8 % (43.0-81.0); PLATELET COUNT (AUTO) 356 /CMM (150-450); RDW COEFFICIENT OF VARIATION 19.1 (11.5-15.0); RED BLOOD CELL COUNT(AUTO) 4.83 MIL/uL (4.0-5.2)
[2017-06-16 07:18] LABS: CALCIUM, SERUM 7.5 mg/dL (8.5-10.1); CREATININE 0.7 mg/dL (0.6-1.3); MAGNESIUM 1.8 mg/dL (1.8-2.4); PHOSPHORUS 3.2 mg/dL (2.5-4.9); POTASSIUM 3.5 mmol/L (3.5-5.1)
--- NOTE | 2017-06-16 07:30 | NUR ---
RN OPENING NOTES RECEIVED PT. IN BED A&OX4. NO S/S OF SOB, BREATHING ON OXYGEN AT 4L/MIN VIA NASAL CANNULA. IV FLUIDS RUNNING. PT. HAS MOSES CATHETER WITH 0 CC OUTPUT. 0 CC OUTPUT OF GINNY MATHUR DRAINS ON LEFT UPPER ABDOMEN, AND ON PELVIS LEFT SIDE. BED IS IN LOWEST, LOCKED POSITION, 2 SIDE RAILS UP, AND INSTRUCTED PT. TO USE CALL LIGHT FOR ASSISTANCE. WILL CONTINUE TO ASSESS AND MONITOR.
--- NOTE | 2017-06-16 07:50 | NUR ---
MS RN CLOSING NOTES: PATIENT IN BED, AOX4, ON O2 AT 5 LPM VIA NC, BREATHING UNLABORED, NO SOB, WITH SLIGHT WHEEZING HEARD ON UPPER LUNG ABDI. HOB MAINTAINED ELEVATED THROUGH NIGHT. STILL COMPLAINS OF 9/10 PAIN OVER ABDOMINAL INCISION SITES. LEFT AND RIGHT ABDL STEVE DRAINS STILL WITH MINIMAL AMOUT OF SEROSANGUINEOUS DRAINAGE, DRAINED TOTAL OF 20 ML ON RIGHT AND 10 ML ON LEFT. DRESSINGS OVER ABDOMEN INTACT AND SECURED BY BINDER. MOSES CATHETER IN PLACE DRAINING DARK YELLOW URINE. KAYCEE MIDLINE INTACT AND PATENT TO FLUSH. DUE MEDS GIVEN. PROVIDED FOR COMFORT AND SAFETY. BED IN LOWEST AND LOCKED POSITION, SIDERAILS UPX2. WILL ENDORSE TO AM RN FOR AGUSTIN.
[2017-06-16 08:00] VITALS: BP 145/94
[2017-06-16] MEDS: PANTOPRAZOLE 40 MG VIAL IV SCH (08:27)
[2017-06-16] MEDS: VANCOMYCIN 1 GM in IV D5W 250 ML IV SCH ×3 (08:27→23:19)
[2017-06-16] MEDS: oxyCODONE HCL SR 20MG TAB.SR.12H PO SCH ×2 (09:06→20:43)
[2017-06-16] MEDS: ENOXAPARIN SODIUM 40 MG/0.4 ML DISP.SYRIN SQ SCH (09:08)
[2017-06-16 09:49] LABS: BAND % (MANUAL) 9 % (0.0-5.0); EOSINOPHILS % (MANUAL) 1 % (0-4); LYMPHOCYTES % (MANUAL) 2 % (16-48); METAMYELOCYTES % 1 % (0-0); MONOCYTES % (MANUAL) 5 % (0-11.0); MYELOCYTES % 6 % (0-0); NEUTROPHILS % (MANUAL) 76 (42-76)
[2017-06-16] MEDS: methylPREDNISolone SOD SUCC 40 MG/ML VIAL IV SCH ×3 (11:01→18:13)
--- NOTE | 2017-06-16 12:00 | NUR ---
RN NOTES PT. WAS SEEN AND EXAMINED BY DR. DAWKINS. PT.'S ABDOMINAL DRESSING WAS CHANGED AND NEW DRESSING APPLIED BY MD. PT. DID NOT HAVE GINNY MATHUR DRAINS REMOVED PER REQUEST. DOCTOR SPENT 40 MINUTES WITH PT. EXPLAINING THE PLAN. NEW ORDERS WERE GIVEN TO TAKE CULTURE AND SENSITIVITY OF GINNY MATHUR DRAINS, CARAFATE MEDICATION TO HELP WITH DISCOMFORT IN THE CHEST AREA WITH FLUID INTAKE, AND NYSTATIN PO.
[2017-06-16] MEDS: IPRATROPIUM NEB FS 0.5 MG/2.5 ML AMPUL.NEB NEB SCH ×2 (15:30→19:55)
[2017-06-16] MEDS: ALBUTEROL FS 2.5 MG/0.5 ML VIAL.NEB NEB SCH ×4 (15:30→19:55)
--- NOTE | 2017-06-16 15:45 | NUR ---
RT Ordered changed from prn to [id number] found out at 1pm went to give tx pt dsnt want it states that she's sleepy and shes fine at the moment. she will call when she needs it Addendum: 06/16/17 at 1546 by SILVER ANTONIO RT Amended: Links added.
[2017-06-16 16:00] VITALS: BP 132/97
--- NOTE | 2017-06-16 16:00 | NUR ---
RN NOTES PT. WAS SEEN AND EXAMINED BY INFECTIOUS DISEASE MD, AND NEW ORDER WAS GIVEN TO COLLECT A SAMPLE FO SPUTUM FOR CULTURE.
[2017-06-16] MEDS: SUCRALFATE 1 G/10 ML UDC PO SCH ×2 (18:12→23:30)
[2017-06-16] MEDS: NYSTATIN (PYXIS) 500,000 UNIT/5 ML ORAL.SUSP PO SCH (18:12)
--- NOTE | 2017-06-16 19:45 | NUR ---
RN CLOSING NOTES PT. IN BED A&OX4. NO S/S OF SOB, BREATHING UNLABORED, AND EVENLY ON OXYGEN 4L/MIN VIA NASAL CANNULA. IV FLUIDS RUNNING. NO S/S OF ACUTE DISTRESS. 500 CC OUTPUT OF TEA COLORED URINE FROM MOSES CATHETER, AND 450 CC OUTPUT FROM GINNY MATHUR DRAINS. BED IS IN LOWEST, LOCKED POSITION, 2 SIDE RAILS UP, AND INSTRUCTED PT. TO USE CALL LIGHT FOR ASSISTANCE. WILL ENDORSE REPORT TO NURSE.
--- NOTE | 2017-06-16 19:56 | NUR ---
MS/RN OPENING NOTES PATIENT IN BED, AWAKE, ALERT, ON OXYGEN VIA NC FOR COMFORT MEASURES, ASSISTED TO PULL PATIENT UP FOR COMFORT, DVT PUMPS ON, MOSES CATHETER DRAINING, BLANDDER NON DISTENDED, STEVE DRAIN W/ NOTED DRAINAGE. PATIENT PROVIDED SPUTUM CUP FOR SAMPLE, RT WILL PROVIDE BREATHING AND WILL CHECK FOR SPUTUM. REQUEST SLEEPING PILL AT BED TIME, THE GOAL IS TO REST TONIGHT. PAIN MANAGEMENT MONITORING. WILL CONTINUE TO MONITOR.
[2017-06-16 20:00] VITALS: BP 146/73
--- NOTE | 2017-06-16 20:10 | NUR ---
ms/rn notes RT JOSAFAT ASSISTED PATIENT W/ BREATHING TX AND OBSERVED PATIENT UNABLE TO COUGH OUT SPUTUM DUE TO DRY COUGH, TO INFORM MD FOR ORDER TO ASSIST PATIENT AND RELIEVE DRY COUGH.
--- NOTE | 2017-06-16 20:10 | NUR ---
ATTEMPTED TO DO SPUTUM SAMPLE, BUT PT UNABLE TO SPIT DUE TO DRY COUGH. JACIEL COLLAZO NOTIFIED
[2017-06-17] MEDS: HYDROCODONE/APAP 10/325MG 1 EA TABLET PO PRN ×4 (02:10→16:32)
[2017-06-17] MEDS: ONDANSETRON HCL/PF 4 MG/2 ML VIAL IV PRN ×3 (02:11→19:26)
--- NOTE | 2017-06-17 02:22 | NUR ---
ms/rn notes sputum sample collected. patient verbalized pain in abdomen, cramping type. provided warm blanket,and norco 10/325 mg po, will monitor effectiveness, observed guarding and grimace.
--- NOTE | 2017-06-17 03:10 | NUR ---
MS/RN NOTES PATIENT UNABLE TO RELAX AND PRN ATIVAN IVP GIVEN,RECOMMEND TO LISTEN TO MUSIC AND PATIENT LISTENING TO MUSIC W/ HEADPHONE , ALSO DEEP BREATHING TECHNIQUE AND USES SPIROMETER. WILL MONITOR.
[2017-06-17] MEDS: MEROPENEM 1 G in IV NS 0.9% 100 ML IV SCH ×2 (04:24→12:39)
--- NOTE | 2017-06-17 04:35 | NUR ---
MS/RN NOTES PATIENT OBSERVED WHEEZING, BUT STATED FEEL FINE AND DO NOT NEED BREATHING TX AT THIS TIME. OXYGEN SAT CHECK AT 92% WITH 5L NC. WILL MONITOR. RT MADE AWARE. NO PRN BREATHING TX WILL FOLLOW UP IN AM .
[2017-06-17] MEDS: SUCRALFATE 1 G/10 ML UDC PO SCH ×3 (05:40→17:45)
--- NOTE | 2017-06-17 06:32 | NUR ---
PATIENT IN BED, ABLE TO VERBALIZE NEEDS AT ALL TIMES, ALERT, ORIENTED X3. PAIN MEDICATION PROVIDED, COMPLAINED OF CRAMPS IN ABDOMEN, PROVIDED PRN NORCO 10-325 MG PO. , REQUIRE OXYGEN VIA NC AT 5L, NOTED WHEEZING I, RT PROVIDED BREATRHING TX. REPOSTION FOR COMFORT, ABLE TO TOLERATE CLEAR LIQUIDS, CALL LIGHTS WITHIN REACH. BED IN LOCK POSITION. WILL CONTINUE TO MONITOR,
[2017-06-17 07:37] LABS: EOSINOPHILS # (AUTO) 0.2 /CMM (0.0-0.7); EOSINOPHILS % (AUTO) 0.9 % (0.0-6.0); HEMATOCRIT 32 % (33-45); HEMOGLOBIN 10.5 g/dL (11.5-14.8); LYMPHOCYTES # (AUTO) 0.6 /CMM (0.8-4.8); LYMPHOCYTES % (AUTO) 2.5 % (20.0-44.0); MEAN CORPUSCULAR HEMOGLOBIN 22 PG (26.0-33.0); MEAN CORPUSCULAR HGB CONC 33 g/dl (31.0-36.0); MEAN CORPUSCULAR VOLUME 67 fL (82-100); MONOCYTES # (AUTO) 1.6 /CMM (0.1-1.30); MONOCYTES % (AUTO) 6.2 % (2.0-12.0); NEUTROPHILS # (AUTO) 22.9 /CMM (1.8-8.9); NEUTROPHILS % (AUTO) 90.4 % (43.0-81.0); PLATELET COUNT (AUTO) 347 /CMM (150-450); RDW COEFFICIENT OF VARIATION 19.1 (11.5-15.0); RED BLOOD CELL COUNT(AUTO) 4.85 MIL/uL (4.0-5.2); WHITE BLOOD COUNT (AUTO) 25.3 K/uL (4.3-11.0)
[2017-06-17 07:54] LABS: CREATININE 0.6 mg/dL (0.6-1.3); MAGNESIUM 2.1 mg/dL (1.8-2.4); PHOSPHORUS 3.2 mg/dL (2.5-4.9); POTASSIUM 4.1 mmol/L (3.5-5.1)
--- NOTE | 2017-06-17 07:54 | NUR ---
MS RN NOTES PATIENT IN BED, AWAKE. A/O X4. ON OXYGEN AT 2LPM VIA NC, BREATH SOUNDS WHEEZING. NO C/O SOB. KAYCEE PICC LINE PATENT AND INTACT, FLUSHES WELL. PRESENCE OF STEVE DRAIN IN [place]. SIDE ABD. ABDOMINAL BINDER IN PLACE. PATIENT REPORTED ABDOMINAL PAIN 03/28, MEDICATED WITH NORCO 10/325 1 TAB PO PRN, WILL REASSESS. MOSES CATH INTACT, DRAINING TO GRAVITY. CALL LIGHT WITHIN REACH. WILL CONT TO MONITOR.
[2017-06-17] MEDS: ALBUTEROL FS 2.5 MG/0.5 ML VIAL.NEB NEB SCH ×4 (07:55→19:12)
[2017-06-17] MEDS: IPRATROPIUM NEB FS 0.5 MG/2.5 ML AMPUL.NEB NEB SCH ×4 (07:55→19:12)
[2017-06-17 08:00] VITALS: BP 132/93
[2017-06-17] MEDS: VANCOMYCIN 1 GM in IV D5W 250 ML IV SCH ×2 (08:14→16:15)
--- NOTE | 2017-06-17 08:25 | NUR ---
PER PATIENT SHE WAS TOLD BY HER SURGEON THAT SHE CAN EAT MORE THAN CLEAR LIQUIDS. PATIENT WITH EPISODE OF NAUSEA EARLIER THIS MORNING MEDICATED WITH ZOFRAN IV PRN WITH HELP. NOTIFIED DR. DAWKINS/GI SURGEON.
[2017-06-17 08:57] LABS: BAND % (MANUAL) 4 % (0.0-5.0); LYMPHOCYTES % (MANUAL) 3 % (16-48); MONOCYTES % (MANUAL) 8 % (0-11.0); NEUTROPHILS % (MANUAL) 85 (42-76)
[2017-06-17] MEDS: PANTOPRAZOLE 40 MG VIAL IV SCH (09:25)
[2017-06-17] MEDS: methylPREDNISolone SOD SUCC 40 MG/ML VIAL IV SCH ×2 (09:28→13:20)
[2017-06-17] MEDS: NYSTATIN (PYXIS) 500,000 UNIT/5 ML ORAL.SUSP PO SCH ×3 (09:28→17:27)
[2017-06-17] MEDS: oxyCODONE HCL SR 20MG TAB.SR.12H PO SCH (09:29)
[2017-06-17] MEDS: ENOXAPARIN SODIUM 40 MG/0.4 ML DISP.SYRIN SQ SCH (09:35)
[2017-06-17] MEDS ORDERED: BOOST PLUS FOOD-CHOCLATE 237 ML BOX PO SCH (11:00)
[2017-06-17] MEDS ORDERED: LACTOSE-FREE FOOD 237 ML LIQUID PO SCH (11:30)
--- NOTE | 2017-06-17 13:44 | NUR ---
PATIENT IS SEEN BY DR. DAWKINS/GI SURGEON, DRESSING CHANGED BY MD AT THE BED. SPECIMEN SEND TO LAB FOR WOUND CX W/ GS AEROBIC AND CHIQUITA ORDERED.
[2017-06-17] MEDS: BOOST FOOD- BERRY 237 ML BOX PO SCH ×2 (14:52→17:09)
[2017-06-17 16:00] VITALS: BP 130/86
--- NOTE | 2017-06-17 17:55 | NUR ---
MID ABDOMEN DRESSING INTACT WITH ABDOMINAL BINDER IN PLACE. NOTED EDGE OF DRESSING WITH SOAKING FLUID DRAINAGE, SLIGHTLY OPEN ABDOMINAL DRESSING, NOTED MID ABDOMINAL DRESSING SOAKING WET WITH ABDOMINAL FLUID DRAINAGE, YELLOWISH IN COLOR.
--- NOTE | 2017-06-17 18:47 | NUR ---
DR. DAWKINS SPOKE TO THE PATIENT FOR SECOND LOOK S/P EX LAP TO BE DONE IN THE OR PER MD. PATIENT REFUSING TO HAVE THE PROCEDURE DONE AND DECIDING NOT TO STAY IN THE HOSP. AND LEAVE AGAINST MEDICAL ADVICE. CHARGE NURSE AND CM INFORMED. NOTIFIED PATRICIA CALERO .
--- NOTE | 2017-06-17 19:00 | NUR ---
REINFORCED DRESSING IN MID ABDOMINAL INCISION, PLACE BACK ABDOMINAL BINDER. NOTED LEFT POSTERIOR FLANK ABRASION WITH BLISTER DUE TO IRRITATION FROM WET DRESSING. MEPILEX FOAM APPLIED TO PROTECT SKIN.
[2017-06-17] MEDS: HYDROCODONE/APAP 5/325MG 1 EACH TABLET PO PRN (19:30)
--- NOTE | 2017-06-17 19:45 | NUR ---
MS RN-JONAS NOTES PATIENT IS REFUSING TO STAY IN THE HOSP. DISCUSSED TO PATIENT ABOUT THE RISKS, BENEFITS OF CONTINUED TREATMENT AND HOSPITALIZATION BUT PATIENT STILL REFUSED TO STAY, AND REFUSED ANOTHER TREATMENT, PATIENT STATED SHE WILL GO TO ANOTHER HOSP. DR. DAWKINS IS AWARE, PER MD PATIENT CHOOSE TO GO TO [facility] FOR ANOTHER PROCEDURE. CHARGE NURSE INFORMED AND GEAR INSPECTOR. CM TO ARRANGE TRANSPORTATION.
--- NOTE | 2017-06-17 20:30 | NUR ---
MS RN- JONAS NOTES KAYCEE MIDLINE REMOVED, GAUZE APPLIED, NO BLEEDING NOTED. MOSES CATH REMOVED, OBTAINED 600ML URINE CLEAR AND YELLOW. BILATERAL STEVE DRAIN REMAINS IN PLACE. IMAGES OF TEST PROVIDED TO THE PATIENT. BELONGINGS CHECKED PRIOR LEAVING THE HOSP. PATIENT LEFT HOSP VIA AMBULANCE ACCOMPANIED BY MOTHER.
[2017-06-18] MEDS ORDERED: methylPREDNISolone SOD SUCC 40 MG/ML VIAL IV SCH (09:00)
== END 2017-06-17 20:30 | disposition left against medical advice (07) | DRG 356 ==
LOC: ER 22:35 → TELE 06-11 02:20 → MED 06-11 03:11 → ICU 06-11 17:49 → MED 06-13 19:00 → TELE 06-13 20:14 → MED 06-14 08:40
PROVIDERS: ADMIT Internal Medicine; ATTEND Internal Medicine
PROC: 0W9J0ZZ Drainage of Pelvic Cavity, Open Approach (ICD-10-PCS; principal; 2017-06-11 16:30)
PROC: 05H533Z Insertion of Infusion Device into Right Subclavian Vein, Percutaneous Approach (ICD-10-PCS; principal; 2017-06-11 16:30)
PROC: 0WJJ0ZZ Inspection of Pelvic Cavity, Open Approach (ICD-10-PCS; principal; 2017-06-11 16:30)
PROC: 0BH17EZ Insertion of Endotracheal Airway into Trachea, Via Natural or Artificial Opening (ICD-10-PCS; principal; 2017-06-11 16:30)
PROC: 5A1935Z Respiratory Ventilation, Less than 24 Consecutive Hours (ICD-10-PCS; principal; 2017-06-11 16:30)
PROC: 0WJP0ZZ Inspection of Gastrointestinal Tract, Open Approach (ICD-10-PCS; principal; 2017-06-11 16:30)
PROC: 0UB00ZZ Excision of Right Ovary, Open Approach (ICD-10-PCS; principal; 2017-06-11 16:30)
DX: K95.81 Infection due to other bariatric procedure (principal); A41.9 Sepsis, unspecified organism; J96.01 Acute respiratory failure with hypoxia; N17.0 Acute kidney failure with tubular necrosis; R65.20 Severe sepsis without septic shock; J18.9 Pneumonia, unspecified organism; J90 Pleural effusion, not elsewhere classified; I95.9 Hypotension, unspecified; K65.9 Peritonitis, unspecified; J98.11 Atelectasis; R18.8 Other ascites; T81.30XA Disruption of wound, unspecified, initial encounter; T81.4XXA Infection following a procedure, initial encounter; Y92.009 Unspecified place in unspecified non-institutional (private) residence as the place of occurrence of the external cause; N83.201 Unspecified ovarian cyst, right side; F17.210 Nicotine dependence, cigarettes, uncomplicated; Z88.0 Allergy status to penicillin; Z98.84 Bariatric surgery status; R13.10 Dysphagia, unspecified; Y83.8 Other surgical procedures as the cause of abnormal reaction of the patient, or of later complication, without mention of misadventure at the time of the procedure; Y73.8 Miscellaneous gastroenterology and urology devices associated with adverse incidents, not elsewhere classified
CPT/HCPCS: 31720; 36415; 36569; 36600; 71010-TC; 74246-TC; 74250-TC; 80048-TC; 80053-TC; 80076-TC; 80202-TC; 81000-TC; 82803-TC; 83605-TC; 83690-TC; 83735-TC; 84100-TC; 84484-TC; 84703-TC; 85025-TC; 85730-TC; 86850-TC; 87040-TC; 87070-TC; 87075-TC; 87081-TC; 87186-TC; 88305-TC; 94002-TC; 94003-TC; 94799-TC; A4216; A4606; A6253; A6402; A6403; A9563; C9113; J0330; J0744; J1100; J1170; J1650; J1956; J2060; J2175; J2185; J2250; J2270; J2405; J2550; J2704; J2920; J3370; J3475; J3480; J3490; J7030; J7040; J7050; J7060; J7120; Q9963; Q9967; Q9968; Z7610